=== PATIENT | male | born 1995 | race Hispanic/Latino ===

== ENCOUNTER 2017-10-05 18:42 | Emergency (ER) | payer OTHER ==
[~2017-10-05] VITALS: Ht 172.7 cm; Wt 81.6 kg
[2017-10-05 18:51] VITALS: TEMP 99.9
[2017-10-05 21:30] VITALS: BP 135/72
== END 2017-10-05 21:31 | disposition home or self-care (01) ==
LOC: ED 18:42 → EDBD 18:42 → ED 21:31
DX: S60.221A Contusion of right hand, initial encounter (principal); S00.33XA Contusion of nose, initial encounter; V43.52XA Car driver injured in collision with other type car in traffic accident, initial encounter; W22.11XA Striking against or struck by driver side automobile airbag, initial encounter; Y93.89 Activity, other specified; Y92.89 Other specified places as the place of occurrence of the external cause
CPT/HCPCS: 36415; 90471; 90715; 96374; 96375; 99284; J2175; J2405